=== PATIENT | female | born 1970 | race Two or more races ===

== ENCOUNTER → 2024-11-11 | Outpatient (CLI) | payer OTHER, SELFPAY ==
--- NOTE | 2024-11-11 | XR_ITS ---
Examinations: Ultrasound-guided percutaneous breast biopsy, right breast 2:00 nodule Right breast sonography limited INDICATIONS: Breast sonogram July 19, 2024 BI-RADS 4 suspicious nodule 2:00 position right breast. Exam date and time: November 11, 2024 1238 hours. Informed consent provided. Technique: A timeout was completed verifying correct patient, procedure, site, positioning, and special equipment if applicable Informed consent provided. The patient was placed in a supine position for the breast biopsy. Sonographic images of the breast were performed for localization of the suspicious nodule The patient's breast was prepped and draped in sterile fashion. Maximum sterile barrier technique, hand hygiene, ultrasound sterile technique 1% lidocaine was used to anesthetize the skin and breast adjacent to the suspicious nodule. Utilizing ultrasonographic guidance, 8 core biopsies were obtained of the suspicious nodule utilizing an 18-gauge BioPince needle. The specimens appears satisfactory. US guided breast biopsy marker placement. Estimated blood loss 3 cc. The patient tolerated the procedure well and there were no complications. Impression: Successful ultrasound-guided percutaneous breast biopsy, right breast 2:00 nodule. Ultrasound guided breast biopsy marker placement.
[2024-11-11 11:35] LABS: Basophils # (Auto) 0.1 Thou/mm3 (0.0-0.2); Basophils % (Auto) 2 % (0-2.5); Eosinophils # (Auto) 0.2 Thou/mm3 (0.0-0.5); Eosinophils % (Auto) 3 % (0-10); Hematocrit 39.8 % (36.0-46.0); Hemoglobin 13.2 g/dL (12.0-16.0); Immature Granulocytes % (Auto) 0 % (0-0); Immature Granulocytes Auto 0.02 Thou/mm3 (0.00-0.00); Lymphocytes # (Auto) 1.5 Thou/mm3 (1.0-4.8); Lymphocytes % (Auto) 25 % (10-50); Mean Corpuscular HGB Conc 33.2 g/dl (31.0-37.0); Mean Corpuscular Hemoglobin 30.4 pg (25.0-35.0); Mean Corpuscular Volume 92 fL (80-100); Monocytes # (Auto) 0.5 Thou/mm3 (0.0-0.8); Monocytes % (Auto) 8 % (0-12); Neutrophils # (Auto) 3.9 Thou/mm3 (1.8-7.7); Neutrophils % (Auto) 63 % (37-80); Nucleated Red Blood Cell % 0 /100 WBC (0); Platelet Count 270 Thou/mm3 (140-440); RDW Standard Deviation 46.3 fL (36.4-46.3); Red Blood Count 4.34 Miln/mm3 (4.00-5.20); White Blood Count 6.2 Thou/mm3 (3.6-11.0)
[2024-11-11 11:48] LABS: Partial Thromboplastin Time 25.1 Seconds (22.0-36.0); Prothrombin Time 10.9 Seconds (9.0-12.2)
== END | disposition home or self-care (01) ==
LOC: SIRX 10:09
PROVIDERS: Radiology Diagnostic Radiology; PCP Physician Assistant; Referring Provider Physician Assistant; Visit Provider Physician Assistant
DX: D24.1 Benign neoplasm of right breast (principal); N60.11 Diffuse cystic mastopathy of right breast; Z01.812 Encounter for preprocedural laboratory examination
CPT/HCPCS: 19083; 36415; 85025; 85610; 85730; A4648